=== PATIENT | female | born 1985 | race Caucasian/White ===

== ENCOUNTER 2024-05-07 23:40 | Emergency (ER) | payer OTHER ==
[~2024-05-07] VITALS: Ht 182.9 cm; Wt 68.0 kg
[2024-05-08] MEDS: ENOXAPARIN SODIUM 80 MG/0.8 ML DISP.SYRIN SQ ONE (00:42)
[2024-05-08] MEDS ORDERED: IV NS 0.9% 250 ML IV ONE ×2 (00:44→01:09)
[2024-05-08] MEDS ORDERED: IOHEXOL-350 100 ML VIAL IV ONE ×2 (00:44→01:09)
[2024-05-08] MEDS ORDERED: CT SWABBABLE VALVE TRANS SET 1 EA INFUS.SET MC ONE ×2 (00:44→01:09)
[2024-05-08 00:50] LABS: BASOPHILS % (AUTO) 0.6 % (0.0-2.0); EOSINOPHILS # (AUTO) 0.3 K/uL (0.0-0.7); EOSINOPHILS % (AUTO) 7.2 % (0.0-6.0); HEMATOCRIT 38 % (33-45); LYMPHOCYTES # (AUTO) 1.1 K/uL (0.8-4.8); LYMPHOCYTES % (AUTO) 29.5 % (20.0-44.0); MEAN CORPUSCULAR HEMOGLOBIN 29 PG (26.0-33.0); MEAN CORPUSCULAR HGB CONC 34 g/dl (31.0-36.0); MEAN CORPUSCULAR VOLUME 84 fL (82-100); MONOCYTES # (AUTO) 0.4 K/uL (0.1-1.30); MONOCYTES % (AUTO) 10.6 % (2.0-12.0); NEUTROPHILS % (AUTO) 52.1 % (43.0-81.0); PLATELET COUNT (AUTO) 372 K/uL (150-450); RED BLOOD CELL COUNT(AUTO) 4.55 MIL/uL (4.0-5.2); WHITE BLOOD COUNT (AUTO) 3.9 K/uL (4.3-11.0)
[2024-05-08 01:00] LABS: CALCIUM, SERUM 8.7 mg/dL (8.5-10.1); CARBON DIOXIDE 27 mmol/L (21-32); CHLORIDE 104 mmol/L (98-107); CREATININE 0.6 mg/dL (0.6-1.3); GLUCOSE 91 mg/dL (74-106); POTASSIUM 3.8 mmol/L (3.5-5.1); SODIUM SERUM 139 mmol/L (136-145); UREA NITROGEN, BLOOD 9 mg/dL (7-18)
[2024-05-08 01:09] LABS: NT-PRO BNP 86 pg/mL (0-125)
[2024-05-08] MEDS ORDERED: RIVA10TA PO (05:07)
[2024-05-08 05:29] VITALS: BP 112/66; TEMP 98.3; O2SAT 97
== END 2024-05-08 05:29 | disposition home or self-care (01) ==
LOC: ER 23:52
DX: D68.2 Hereditary deficiency of other clotting factors (principal); D68.51 Activated protein C resistance; R06.02 Shortness of breath; R07.9 Chest pain, unspecified; Z86.711 Personal history of pulmonary embolism; Z79.01 Long term (current) use of anticoagulants
CPT/HCPCS: 99285; 71275; 93005; 85025; 80048; 85378; 36415; 84484 ×2; 83880; 96372; J7050 ×2; Q9967 ×2